=== PATIENT | male | born 1990 | race Caucasian/White ===

== ENCOUNTER 2021-11-23 10:45 | Observation (INO) | payer BC, SELFPAY ==
[2021-11-23 10:47] VITALS: BP 139/70; PULSE 106; RESP 22; TEMP 36.6; O2SAT 94; BMI 31.6
[2021-11-23 11:18] LABS: Vista UDS pH Range 7
[2021-11-23 11:18] LABS: Absolute Lymphocyte Count 1.71 X10^3/uL (0.83-4.51); Absolute Neutrophil Count 6.2 X10^3/uL (2.0-7.7); Basophil# 0.07 X10^3/uL; Basophil% 0.8 % (0-1); Eosinophil# 0.02 X10^3/uL; Eosinophils% 0.2 % (0-5); Hematocrit 51.7 % (40-54); Hemoglobin 17.8 g/dL (13.0-16.5); Lymphocyte # 1.71 X10^3/ul (0.83-4.51); Lymphocyte % 19.5 % (19-41); Mean Corp Hgb Conc 34.4 g/dL (32-36); Mean Corpuscular Hgb 29.6 pg (27.0-32.0); Mean Corpuscular Volume 85.9 fL (80-94); Mean Platelet Vol. 8.6 fl (6.2-12.0); Monocyte# 0.76 X10^3/uL; Monocyte% 8.6 % (0-10); NRBC Flagged by Analyzer 0 % (0-5); Neutrophil # 6.16 X10^3/uL (2.7-7.7); Neutrophil % 70.1 % (47-70); Platelet Count 323 K/mm3 (150-450); RBC Distribution Width SD 40.3 fl (35.1-43.9); Red Blood Count 6.02 M/mm3 (4.6-6.2); White Blood Count 8.8 K/mm3 (4.4-11.0)
--- NOTE | 2021-11-23 11:24 | EX.ED.SAOD ---
HPI History of Present Illness Chief Complaint: Substance Abuse Narrative Narrative: 31-year-old male with longstanding EtOH abuse issues presenting for detox. Patient states that it was within the last month or 2 he was at [facility] for detox. At that point he states he drank about half a gallon of whiskey a day. He states that over the last 2 weeks he has been drinking again and drinks about 1/5 of whiskey a day. Patient states he drank some beers and some white claws prior to coming today. Last drink was right before coming into the ER. Patient states that he was at [facility] last night for detox and states he was very intoxicated and waited so long that he started to go into withdrawals. He could not get seen and reports that he was told to go to [facility] for detox if he needed it. Patient states that he does not have withdrawal seizures but does get very agitated and gets the shakes very badly. He also reports that he has had some problems with nausea and epigastric burning recently reports sometimes is difficult for him to eat and drink because of the symptoms. He does have Zofran at home and this is not helping his nausea. He denies a history of pancreatitis. He states its undiagnosed. Patient further denies illicit drug use except for use of marijuana. [facility] Medical History Alcohol abuse Hx of corrected cleft lip and palate Home Medications NK 11/23/21 [History Last Taken Unknown] Allergy/AdvReac Type Severity Reaction Status Date / Time meperidine [From Demerol] Allergy Anaphylaxis Verified 11/23/21 10:47 Social History Smoking Status: Current every day smoker tobacco type: cigarettes ROS ROS ED Constitutional Constitutional ED: Denies chills or fever(s) Eyes Eyes: Denies change in vision or diplopia ENT ENT ED: Denies rhinorrhea or sore throat Cardiovascular Cardiovascular: Denies chest pain or palpitations Respiratory/Chest Respiratory/Chest: Denies cough or dyspnea Gastrointestinal Gastrointestinal: Reports nausea and vomiting; Denies abdominal pain Genitourinary Genitourinary ED: Denies dysuria Musculoskeletal Musculoskeletal: Denies arthralgias or back pain Integumentary Denies abscess or Abrasions Neurologic Neurologic: Denies headache(s) or paresthesias Psychiatric Psychiatric: Reports anxiety; Denies depression, suicidal ideation or suicidal thoughts EXAM Physical Exam Const Vital Signs: 11/23/21 10:47 Temperature 97.9 F Temperature Source Temporal Pulse Rate 106 H Respiratory Rate 22 H Blood Pressure 139/70 H Blood Pressure Mean 93 Pulse Ox 94 Oxygen Delivery Method Room Air Positive well nourished General Appearance ED: NAD; Negative for pallor HEENT Reports moist mucous membranes atraumatic Eyes PERRL and EOMs intact bilaterally Chest Wall inspection of chest normal Resp normal respiratory effort and clear to auscultation bilaterally Auscultation: Negative for rales, rhonchi or wheezes Cardio regular rhythm Rate: tachycardic GI soft to palpation and no masses Neuro oriented x3 and CN's II-XII intact bilaterally Sensorium / Orientation: alert Psych mental status grossly normal and thought process normal Skin General Skin Exam: Negative for jaundice or pallor MDM MDM MDM Narrative Medical decision making narrative: Patient presenting for EtOH detox. On my initial exam he states he was not feeling any anxiety or feelings of withdrawal but he does get the symptoms. I obtained blood work and his CBC and CMP are normal. Urine drug screen positive for cannabinoids. Lipase negative. EtOH 99. Patient did state that he started to feel little anxious and was given 1 mg of Ativan. His nausea was treated with Zofran and he was also given a dose of Protonix as well as a liter of IV fluids. Patient discussed with hospitalist for admission. Impression: 1. EtOH intoxication 2. EtOH abuse 3. EtOH withdrawal 4. Nausea/vomiting Lab Data Attestation: I reviewed the patient's lab results. Labs: Laboratory Results - last 24 hr 11/23/21 11/23/21 11/23/21 11:05 11:10 11:10 WBC 8.8 RBC 6.02 Hgb 17.8 H Hct 51.7 MCV 85.9 MCH 29.6 MCHC 34.4 RDW Std Deviation 40.3 RDW Coeff of Jennifer 13.0 Plt Count 323 MPV 8.6 Immature Gran % (Auto) 0.800 Neut % (Auto) 70.1 H Lymph % (Auto) 19.5 [place] % (Auto) 8.6 Eos % (Auto) 0.2 Baso % (Auto) 0.8 Absolute Neuts (auto) 6.2 Absolute Lymphs (auto) 1.71 Nucleated RBC % 0 Sodium 138 Potassium 3.6 Chloride 101 Carbon Dioxide 28.0 Anion Gap 9 BUN 6 L Creatinine 1.09 Estim Creat Clear Calc 93.49 Est GFR (MDRD) Af Amer 103 Est GFR (MDRD) Non-Af 85 BUN/Creatinine Ratio 5.5 L Glucose 112 H Calcium 9.2 Total Bilirubin 0.50 AST 26 ALT 42 Alkaline Phosphatase 99 Total Protein 8.0 Albumin 4.0 Globulin 4.0 Albumin/Globulin Ratio 1.0 Lipase Urine Opiates Screen NEGATIVE Urine Methadone Screen NEGATIVE Ur Barbiturates Screen NEGATIVE Ur Phencyclidine Scrn NEGATIVE Ur Amphetamines Screen NEGATIVE MDMA (Ecstasy) Screen NEGATIVE U Benzodiazepines Scrn NEGATIVE Urine Cocaine Screen NEGATIVE U Cannabinoids Screen POSITIVE H Ur Drug Screen Comment Ethyl Alcohol 11/23/21 11/23/21 11:10 11:10 WBC RBC Hgb Hct MCV MCH MCHC RDW Std Deviation RDW Coeff of Jennifer Plt Count MPV Immature Gran % (Auto) Neut % (Auto) Lymph % (Auto) [place] % (Auto) Eos % (Auto) Baso % (Auto) Absolute Neuts (auto) Absolute Lymphs (auto) Nucleated RBC % Sodium Potassium Chloride Carbon Dioxide Anion Gap BUN Creatinine Estim Creat Clear Calc Est GFR (MDRD) Af Amer Est GFR (MDRD) Non-Af BUN/Creatinine Ratio Glucose Calcium Total Bilirubin AST ALT Alkaline Phosphatase Total Protein Albumin Globulin Albumin/Globulin Ratio Lipase 110 Urine Opiates Screen Urine Methadone Screen Ur Barbiturates Screen Ur Phencyclidine Scrn Ur Amphetamines Screen MDMA (Ecstasy) Screen U Benzodiazepines Scrn Urine Cocaine Screen U Cannabinoids Screen Ur Drug Screen Comment Ethyl Alcohol 99.0 Discharge Plan Triage Chief Complaint: Substance Abuse ED Provider: Aamir Pelletier Dx/Rx/DC Orders Prescriptions: No Action NK Primary Care Provider: Mary Jane Block,Out of Referrals: Mary Jane Block,Out of [Primary Care Provider] -
[2021-11-23 11:30] LABS: Amphetamine Urine VISTA NEGATIVE (<1000 ng/mL); Barbiturate Urine VISTA NEGATIVE (< 200 ng/mL); Benzodiazepine Urine VISTA NEGATIVE (< 200 ng/mL); Cocaine Urine VISTA NEGATIVE (< 300 ng/mL); Ecstacy Urine VISTA NEGATIVE (< 500 ng/mL); Methadone Urine VISTA NEGATIVE (< 300 ng/mL); PCP Urine VISTA NEGATIVE (< 25 ng/mL); THC Urine VISTA POSITIVE (< 50 ng/mL)
[2021-11-23 11:34] LABS: AST(SGOT) 26 U/L (15-37); Alanine Aminotransfer ALT/SGPT 42 U/L (16-61); Alkaline Phosphatase 99 U/L (45-117); Anion Gap 9 (5-15); BUN 6 mg/dL (7-18); BUN/Creat Ratio 5.5 RATIO (10-20); Calcium,Total 9.2 mg/dL (8.5-10.1); Chloride 101 mmol/L (98-107); Creatinine, Serum 1.09 mg/dL (0.70-1.30); EST Glomerular Filtration Rate 85 mL/min (>60); Est Glom Filt Rate - Afr Amer 103 mL/min (>60); Estimated Creatinine Clearance 93.49 ml/min; Glucose 112 mg/dL (74-106); Potassium 3.6 mmol/L (3.5-5.1); Sodium Level 138 mmol/L (136-145)
--- NOTE | 2021-11-23 11:39 | CM.ED ---
Addendum entered by Radha Lorenz 11/23/21 14:11: SW placed a call to [facility] addiction therapist and provided referral. Original Note: Social Work Note Reason for Referral: ETOH Detox SW in to speak with pt. Pt with guest present in room. Pt gave permission for this worker to speak to him in front of his guest. Pt confirms that he is at [facility] for Detox/Stabilization Program. Pt states that the rules were reviewed with him and is agreeable. SW to call addiction therapist to inform of referral. Radha Lorenz DEPARTMENT STORE SALESPERSON, [employer]
[2021-11-23] MEDS: LORazepam 2 MG/ML Syringe 1 MG IV (12:00)
[2021-11-23] MEDS: 0.9% Normal Saline 1,000 ML 999 ML IV (12:00)
[2021-11-23] MEDS: Metoclopramide 10 MG/2 ML Vial IV (12:00)
[2021-11-23 12:16] LABS: Lipase 110 U/L (73-393)
--- NOTE | 2021-11-23 13:49 | HP.PCM.HOS_ITS ---
HPI - General General Date of Admission: 11/23/21 Date of Service: 11/23/21 Chief Complaint: Acute alcohol withdrawal HPI Narrative MACHELLE GASPAR, is a 31 M who presented to the emergency department at [facility] on 11/23/2021 requesting detox from alcohol. The patient had a recent admission within the last 2 months at [facility] and had been following up at [facility] but unfortunately started drinking again a pproximately bout 2 weeks ago. He is currently drinking 1/5 of any type of hard liquor he can find a day. His last drink was just prior to admission. Alcohol level at the time of admission was 99. He also is complaining of some nausea and abdominal pain that sounds more like dyspepsia. He was given Protonix in the emergency department. Vital signs emergency department showed a temperature of 97.9, blood pressure of 139/70, heart rate 106, respiratory rate 22, oxygen saturations were 94% on room air. His CBC and CMP are unremarkable. His tox screen is positive only for cannabis. [facility] Medical History Alcohol abuse Hx of corrected cleft lip and palate Tobacco abuse Home Medications NK 11/23/21 [History Last Taken Unknown] Allergy/AdvReac Type Severity Reaction Status Date / Time meperidine [From Demerol] Allergy Anaphylaxis Verified 11/23/21 10:47 Family History (Updated 11/23/21 @ 14:[address] Lamar Snow DO) Grandfather Alcoholism Surgical History (Updated 11/23/21 @ 14:[address] Lamar Snow DO) H/O cleft lip repair Social History (Updated 11/23/21 @ 14:[address] Lamar Snow DO) Smoking Status: Current every day smoker tobacco type: cigarettes Smoking packs per day: 2 Smoking cigarettes per day: 40.0 alcohol intake: current alcohol intake frequency: 3 or more drinks per day substance use type: marijuana ROS Constitutional Constitutional: Reports fatigue and malaise; Denies anorexia, change in weight, chills, fever(s), night sweats, weakness or other Eyes Eyes: Denies blurry vision, change in eye color, change in vision, discharge from eye(s), double vision, erythema, eye pain, loss of vision or other ENT HEENT: Denies abnormal hearing, dysphagia, ear pain, epistaxis, headache(s), hearing loss, nasal congestion, nasal discharge, post nasal drip, sinus pressure, sore throat or other Cardiovascular Cardiovascular: Denies chest pain, claudication, dyspnea on exertion, edema, lightheadedness, orthopnea, palpitations, paroxysmal nocturnal dyspnea, rapid heart rate, syncope or other Respiratory/Chest Respiratory/Chest: Denies cough, dyspnea, excessive phlegm production, hemoptysis, productive cough, shortness of breath at rest, shortness of breath with exertion, wheezing or other Gastrointestinal Gastrointestinal: Reports abdominal pain, dyspepsia and nausea; Denies coffee ground emesis, constipation, diarrhea, hematemesis, hematochezia, loose stools, melena, vomiting or other Genitourinary Genitourinary: Denies burning urination, difficulty urinating, dysuria, hematuria, nocturia, urinary frequency, urinary hesitancy, urinary incontinence, urinary urgency or other Musculoskeletal Musculoskeletal: Denies arthralgias, back pain, joint pain, joint stiffness, joint swelling, myalgias, neck pain or other Neurologic Neurologic: Denies abnormal gait, abnormal speech, confusion, disequilibrium, dizziness, focal weakness, headache(s), numbness, paresthesias, seizure-like activity, seizures, syncope, tingling, tremor(s) or other Psychiatric Psychiatric: Denies anxiety, depression, homicidal ideation, suicidal ideation or other Endocrine Endocrinology: Denies change in body appearance, cold intolerance, excessive sweating, heat intolerance, polydipsia, polyuria or other Hematologic/Lymphatic Hematologic/Lymphatic: Denies anemia, easy bleeding, easy bruising, lymphadenopathy or other Allergic/Immunologic Allergic/Immunologic: Denies rhinitis, hives, eczemia, asthma or other Vital Signs Vital Signs Vital Signs: 11/23/21 10:47 Temperature 97.9 F Temperature Source Temporal Pulse Rate 106 H Respiratory Rate 22 H Blood Pressure 139/70 H Blood Pressure Mean 93 Pulse Ox 94 Oxygen Delivery Method Room Air Weight Weight: 91.444 kg Body Mass Index (BMI) 31.6 Physical Exam Const alert and oriented x3 Constitutional Narrative: Obese, young white male who appears much older than stated age, lying in bed in the emergency department right side-lying, appears uncomfortable but nontoxic General Appearance: cooperative HEENT normocephalic, head/scalp atraumatic, hearing grossly normal bilaterally and moist oral mucous membranes HEENT Narrative: Obvious history of a cleft lip on the left side, Mallampati 3, no thrush, dentition poor Resp normal respiratory effort, no retractions, no use of accessory muscles and clear to auscultation bilaterally Resp Narrative: Diffusely diminished but clear Auscultation: Negative for crackles, rales, rhonchi or wheezes Cardio regular rhythm, S1 normal heart sound, S2 normal heart sound, no murmurs, no rub, no gallops, no clicks and no JVD Cardio Narrative: Tachycardic-mild GI normal to inspection, nondistended, normoactive bowel sounds, soft to palpation and non-distended Extremity no clubbing, cyanosis or edema Extremity Narrative: 2+ pedal pulses Neuro oriented x3, moves all extremities and no focal motor deficits Speech: speech normal Psych Psych Narrative: Affect is flattened mood seems depressed Results Lab / Micro Data Attestation: I reviewed the patient's lab results. Result Diagrams: 11/23/21 11:10 11/23/21 11:10 Labs: Laboratory Results - last 24 hr 11/23/21 11:05: Urine Opiates Screen NEGATIVE, Urine Methadone Screen NEGATIVE, Ur Barbiturates Screen NEGATIVE, Ur Phencyclidine Scrn NEGATIVE, Ur Amphetamines Screen NEGATIVE, MDMA (Ecstasy) Screen NEGATIVE, U Benzodiazepines Scrn NEGATIVE, Urine Cocaine Screen NEGATIVE, U Cannabinoids Screen POSITIVE H, Ur Drug Screen Comment 11/23/21 11:10: WBC 8.8, RBC 6.02, Hgb 17.8 H, Hct 51.7, MCV 85.9, MCH 29.6, MCHC 34.4, RDW Std Deviation 40.3, RDW Coeff of Jennifer 13.0, Plt Count 323, MPV 8.6, Immature Gran % (Auto) 0.800, Neut % (Auto) 70.1 H, Lymph % (Auto) 19.5, Clare % (Auto) 8.6, Eos % (Auto) 0.2, Baso % (Auto) 0.8, Absolute Neuts (auto) 6.2, Absolute Lymphs (auto) 1.71, Nucleated RBC % 0 11/23/21 11:10: Sodium 138, Potassium 3.6, Chloride 101, Carbon Dioxide 28.0, Anion Gap 9, BUN 6 L, Creatinine 1.09, Estim Creat Clear Calc 93.49, Est GFR (MDRD) Af Amer 103, Est GFR (MDRD) Non-Af 85, BUN/Creatinine Ratio 5.5 L, Gluc ose 112 H, Calcium 9.2, Total Bilirubin 0.50, AST 26, ALT 42, Alkaline Phosphatase 99, Total Protein 8.0, Albumin 4.0, Globulin 4.0, Albumin/Globulin Ratio 1.0 11/23/21 11:10: Ethyl Alcohol 99.0 11/23/21 11:10: Lipase 110 Assessment & Plan Assessment/Plan (1) Alcohol withdrawal: (2) Gastritis: (3) Marijuana use: PLAN: Plan Alcohol withdrawal -Underwent detox at [facility] within the last 1 to 2 months -Had been following up at [facility] IOP -Started drinking about 2 weeks ago -Currently drinking about fifth of any liquor he can find -Last drink was just prior to coming in -Alcohol level on admission was 99 -Start phenobarbital taper -Thiamine/folate -Supportive medications -180 consultation Suspected gastritis -Patient reports symptoms consistent with gastritis -Start Protonix 40 mg p.o. daily -Start Carafate 1 mg 4 times daily -Monitor for symptoms THC use -Recommend cessation Tobacco abuse -Recommend cessation -Nicotine patch available DVT prophylaxis -Low risk -Ambulation CODE STATUS -Full code Charges/Coding Visit Charges Inpatient E&M: 82430 Init Hosp L2
[2021-11-23 14:29] VITALS: BMI 28.8
[2021-11-23 14:30] VITALS: BP 125/79; PULSE 98; RESP 16; TEMP 36.9; O2SAT 95
[2021-11-23] MEDS: Phenobarbital 32.4 MG Tablet 97.2 MG PO ×3 (15:39→22:35)
[2021-11-23] MEDS: Sucralfate 1 GM Tablet PO ×2 (15:39→22:10)
[2021-11-23] MEDS: Dicyclomine 10 MG Capsule 20 MG PO (15:39)
[2021-11-23] MEDS: Gabapentin 300 MG Capsule PO (15:39)
--- NOTE | 2021-11-23 15:41 | ADDICTION ---
This tech writer met with PT to conduct ASAM, MSE, AUDIT assessments and to plan for d/c. PT A+Ox4 and participated actively. All assessments completed, and placed in PT's chart. PT plans to f/u with individual counselor at [facility] in [place] for follow-up outpatient counseling services. PT did not indicate a need for transportation post d/c from [facility].
[2021-11-23] MEDS: LORazepam 2 MG/ML Syringe IV ×3 (16:44→20:27)
[2021-11-23] MEDS: 0.9% Saline Lock 10 ML Syringe IV ×2 (16:45→20:27)
[2021-11-23 20:30] VITALS: BP 148/101; PULSE 115; RESP 18; TEMP 36.8; O2SAT 95
[2021-11-23] MEDS: traZODone 100 MG Tablet PO (22:35)
[2021-11-23] MEDS: hydrOXYzine PAM 25 MG Capsule 50 MG PO (22:35)
[2021-11-23] MEDS: LORazepam 1 MG Tablet 2 MG PO (22:35)
--- NOTE | 2021-11-24 02:54 | NURSING ---
This nurse earlier in the night thought she smelled snuff on patient's breath, when she went in to give 3 am meds, tote ties was broken and his phone was out of the tote laying on his chest. PRNs given at bedtime and he was snoring hard and didn't rouse to take phenobarb, vitals assessed and wnl. Charge notified about his tote. Meds wasted in accudose.
[2021-11-24 07:59] VITALS: O2SAT 95
--- NOTE | 2021-11-24 11:20 | PCM.HOSP.N ---
Hospitalist Note Overnight patient broke into his locked up belongings and took his phone out he was also noted to be extremely somnolent afterwards. We did confront him based on the ramp program agreement that he signed prior to admission and he refused to give his phone and stated that he was just going to go if he could not have it for 3 days. We educated him on the reasoning and he was resistant to accepting this education. We did advise him that if he would like to read go through detox we are happy to take care of him and just 3 presents emergency department. He left AGAINST MEDICAL ADVICE on 11/24/2021
--- NOTE | 2021-11-24 12:23 | NURSING ---
late entry: at 830a was called in to pts room. Dr. Snow in room talking with pt about how pt broke open RAMP boxes to get his phone. Dr. Snow asked pt for his phone per the signed contract with the RAMP program he is not allowed to have his phone. pt would not give up his phone. pt was made aware that per the contract that if he does not follow the rules can be asked to leave program. This nurse talked with pt and reminded pt on admission the day prior that this RN had talked about why he couldn't have his phone or personal belongings - at that time the pt was agreeable with that. But sometime during the night the pt wanted his phone so he broke open the RAMP boxes and retrieved his phone. this RN asked for his phone and if he wouldn't give it up then he can sign AMA papers to leave the program. pt states you don't expect me to be here for 3 days without having my phone i went through the rules and why no phone pt states that is stupid and at least in [facility] you get a phone call states that i have a at home i informed him that she can call in and check on him with the nursing staff on how he is doing but that she would not be able to talk to them. he states that wont work for me. this RN stated that i would like for him to stay and get the help he needed but he has to give up his phone. since pt would not do this then the may leave the hospital. pt states he is going to leave. this RN undid the RAMP boxes so pt could get dressed. pt signed the AMA papers. By this time security was up on the floor to escort pt out. rechecked pt 10 mins later and pt was not dressed. Informed pt that AMA papers are signed and that he needs to get dressed and leave. states when i'm ready informed pt that he needs to get up and get dressed or we will have to call [employer]. pt was upset states i hate the trial examiner they are a bunch of pigs pt got up and dressed walked around the room for another 5mins or so then Security escorted pt out the Hospital. did inform pt that when he was ready to get cleaned that he can always come back to the ER, but just remember that you will not have access to any personal belonging.
== END 2021-11-24 08:52 | disposition left against medical advice (07) | DRG 894 ==
LOC: ED 11:12 → MS3 02-04 10:01
PROVIDERS: Admitting Provider Internal Medicine; Emergency Provider Student in an Organized Health Care Education/Training Program; Visit Provider Internal Medicine
DX: F10.229 Alcohol dependence with intoxication, unspecified (principal); F10.239 Alcohol dependence with withdrawal, unspecified; F12.99 Cannabis use, unspecified with unspecified cannabis-induced disorder; F17.210 Nicotine dependence, cigarettes, uncomplicated; K29.70 Gastritis, unspecified, without bleeding; Y90.4 Blood alcohol level of 80-99 mg/100 ml; Z53.29 Procedure and treatment not carried out because of patient's decision for other reasons
CPT/HCPCS: 80053; 80307; 82077; 83690; 85025; 96365; 96366; 96375; 96376; 97802; 99218; 99406; J7030; A4216; G0378

== ENCOUNTER 2021-11-26 15:55 | Inpatient (IN) | payer BC, SELFPAY ==
[2021-11-26 15:57] VITALS: BP 146/92; PULSE 115; RESP 14; TEMP 36.4; O2SAT 96; BMI 29.9
--- NOTE | 2021-11-26 17:16 | EDS_ITS ---
HPI History of Present Illness Chief Complaint: Substance Abuse Detail of Chief Complaint: Alcoholism requesting detox Informant: patient, spouse/S.O. and family Onset/Context/Timing Onset: - (Patient has been drinking since age of 14.) Context: Sudden Onset Timing: Continuous Quality: Patient admits to drinking a case of white claw a day Location: Not applicable Current Severity: Severe Maximum Severity: Severe Worsened by: Nothing Relieved by: Nothing Associated Symptoms Associated Symptoms: Positive for palpatations and change in mental status; Negative for vomiting*, diarrhea*, fever*, rash*, seizure, tremor, trauma, sex for drugs*, no, suicidal ideation, homicidal ideation or *HIV Risk Factors:Consider testing if last test > 6 months Prehospital Treatment: Naloxone, Glucose, Oxygen, BVM and CPR Narrative Narrative: Patient is a 31-year-old gentleman who was brought to the emergency department by friend and spouse. He has 2 children and his is presently . He works for [employer]. He admits to smoking cigarettes, marijuana and e- cigarettes. He states he tried heroin once. He admits to drinking 12 pack of white claw a day. Patient states he left from the ER on the because I was an asshole . Patient states he needs help. Patient apparently does not like his present job. He denies headache. He denies ocular, visual auditory symptoms. Nuys ringing his ears decreased hearing. He denies cardiac respiratory symptoms. He denies abdominal pain. Denies black or maroon-colored stool. He denies bruising easily. Prior similar symptoms: Yes Recent Illness/Hospitalization: No PFSH PFSH Medical History Alcohol abuse Hx of corrected cleft lip and palate Tobacco abuse Home Medications NK 11/23/21 [History Last Taken Unknown] Allergy/AdvReac Type Severity Reaction Status Date / Time meperidine [From Demerol] Allergy Anaphylaxis Verified 11/26/21 15:59 Family History Grandfather Alcoholism Surgical History H/O cleft lip repair Social History (Updated 11/26/21 @ 17:[address] Avinash Lopes MD) household members: spouse and children Smoking Status: Current every day smoker tobacco type: cigarettes alcohol intake: current alcohol intake frequency: 3 or more drinks per day substance use type: marijuana ROS ROS ED Constitutional Constitutional ED: Reports sweats; Denies chills, fever(s), subjective or weight loss Eyes Eyes: Denies blurry vision, change in vision or diplopia ENT ENT ED: Denies ear pain, rhinorrhea or sore throat Cardiovascular Cardiovascular: Reports palpitations; Denies chest pain or racing heartbeat Respiratory/Chest Respiratory/Chest: Denies cough, dyspnea or dyspnea on exertion Gastrointestinal Gastrointestinal: Denies abdominal pain, diarrhea, melena, nausea or vomiting Genitourinary Genitourinary ED: Denies dysuria or urinary frequency Musculoskeletal Musculoskeletal: Denies arthralgias, back pain, myalgias or neck pain Integumentary Denies Abrasions or rash Neurologic Neurologic: Denies headache(s) Psychiatric Psychiatric: Reports anxiety and depression; Denies suicidal ideation Endocrine Endocrinology: Denies cold intolerance or heat intolerance Hematologic/Lymphatic Hematologic/Lymphatic: Denies easy bleeding or easy bruising EXAM Physical Exam Const Vital Signs: 11/26/21 15:57 Temperature 97.6 F L Temperature Source Temporal Pulse Rate 115 H Respiratory Rate 14 Blood Pressure 146/92 H Blood Pressure Mean 110 Pulse Ox 96 Oxygen Delivery Method Room Air Positive well nourished and well developed Constitutional Narrative: Clinically patient is inebriated. His face is flushed. His sclera is injected. He does have a small subconjunctival hemorrhage noted temporal side right eye. General Appearance ED: well developed; Negative for pallor HEENT Reports TM's clear and moist mucous membranes HEENT Narrative: Poor dentition. trauma; Negative for tenderness Tympanic Membrane ED: Yes TM's clear Eyes PERRL and EOMs intact bilaterally Eyes Narrative: Subconjunctival hemorrhage right General Eye ED: Negative for pale conjunctiva or scleral icterus Neck no lymphadenopathy, supple and no JVD Lymph Lymphatic: no lymphadenopathy noted Resp normal respiratory effort and clear to auscultation bilaterally Cardio regular rhythm, S1 normal heart sound, S2 normal heart sound and no murmurs Rate: tachycardic GI soft to palpation, non-tender, non-distended and no masses Auscultation: hypoactive bowel sounds Back/Spine no CVA tenderness Neuro oriented x3, CN's II-XII intact bilaterally and no sensory deficits noted Neuro Narrative: There is no nystagmus. [place] Coma Scale: document GCS findings Spontaneous Obeys Commands Oriented 15 Sensorium / Orientation: alert Speech: speech normal Motor Exam: strength 5/5 throughout Psych Psych Narrative: Clinically patient is inebriated. Patient's psychomotor skills are slow. He understands he is not permitted to smoke during his treatment. Skin General Skin Exam: Negative for jaundice or pallor Lesions: no lesions Rashes: no rashes MDM MDM MDM Narrative Medical decision making narrative: Patient alcoholic requesting detox who clinically is inebriated. Hospitalist was paged for admission. Lab Data Lab results narrative: Return results from ER visit on 826 were reviewed. Laboratory results to be followed by the admitting physician. Discharge Plan Dx/Rx/DC Orders Clinical Impression: Alcoholism with alcohol dependence, Sinus tachycardia, Tobacco use Disposition Disposition: Acute Care Hospital [facility]
--- NOTE | 2021-11-26 17:34 | NURSING ---
MED SURG RAVINDER ALCOHOLISM WITH DEPENDENCY, SINUS TACHYCARDIA
--- NOTE | 2021-11-26 17:38 | HP.PCM.HOS_ITS ---
[facility] - General General Date of Admission: 11/26/21 Date of Service: 11/26/21 Chief Complaint: Acute alcohol withdrawal syndrome. Last drink 45 minutes prior to arrival. HPI Narrative MACHELLE GASPAR, is a 31 M with history of chronic alcohol use and cigarette smoking since age of 12 came to ED for getting medical help for acute alcohol withdrawal syndrome. Patient is having generalized shaking, anxiety, restlessness and nausea. He denies hallucination, delusion or illusion or suicidal ideation or attempt. Patient was admitted here on 11/23 and he signed AMA on 11/24. It seems after signing AMA, patient was also chased by patrol police sergeant for 3 [address] from the gas station. After that police caught him and took him to the [email or web address] from where patient and family said he was released after 6 hours. Probably might have signed AMA from there too. As per patient family members, please be team up and he complains of soreness over lower extremities calf and thigh muscles. Mild bruise on both legs. Patient drinks half a gallon of vodka every day and also 12 packs of Biclora every day. He smokes 3 packs of cigarettes daily. He also smokes half a gram of marijuana and e-cigarettes. Prior to that he was using steroid and he has acne over chest and back but quit taking his steroid 4 months ago. His said he went into the wrong company in gym and started using a steroid. In in ED, patient is tachycardic, blood pressure elevated 148/101. No fever. Patient is further admitted. COUNTS INCLUDE 234 BEDS AT THE [facility] Medical History Alcohol abuse Hx of corrected cleft lip and palate Tobacco abuse Home Medications NK 11/23/21 [History Last Taken Unknown] Allergy/AdvReac Type Severity Reaction Status Date / Time meperidine [From Demerol] Allergy Anaphylaxis Verified 11/26/21 15:59 Family History Grandfather Alcoholism Surgical History H/O cleft lip repair Social History household members: spouse and children Smoking Status: Current every day smoker tobacco type: cigarettes alcohol intake: current alcohol intake frequency: 3 or more drinks per day substance use type: marijuana ROS ROS Narrative Constitutional: Reports fatigue and weakness. No fever HEENT: Reports systems reviewed and no addt'l complaints, except as documented Respiratory/Chest: Denies chest pain, shortness of breath at rest or with exertion Gastrointestinal: Denies current coffee ground emesis, hematemesis or vomiting. History of hematemesis about 6 months ago. Genitourinary: Denies burning urination or new urinary tract symptoms Musculoskeletal: Muscle aches and pain in lower extremity as described in HPI. No bony arthritis Neurologic: Denies seizure-like activity skin: No ulcer. No rash Endocrinology: Reports systems reviewed and no addt'l complaints, except as documented Hematologic/Lymphatic: Reports systems reviewed and no addt'l complaints, except as documented Rest 14 ROS are negative except as mentioned in HPI Vital Signs Vital Signs Vital Signs: 11/26/21 15:57 Temperature 97.6 F L Temperature Source Temporal Pulse Rate 115 H Respiratory Rate 14 Blood Pressure 146/92 H Blood Pressure Mean 110 Pulse Ox 96 Oxygen Delivery Method Room Air Weight Weight: 191 lb Body Mass Index (BMI) 29.9 Physical Exam Narrative General: Alert, Oriented x3, Cooperative HEENT: Atraumatic, PERRLA, EOMI, Normocephalic Oral: No Gingival or Mucosal Lesions/ Ulcerations Neck: Supple, No JVD, Negative Carotid Bruits Lungs: Air entry diminished in bilateral lung bases. No crepitation/rhonchi Cardiovascular: Sinus tachycardia, Normal S1, Normal S2, No murmurs Abdomen: Bowel Sounds Present, Soft, Non Tender, Non-Distended : No renal angle tenderness. No suprapubic tenderness. Extremities: No edema, Capillary Refill Less than 3 Seconds Skin: Mild bruise on both legs. Musculoskeletal: Muscle tenderness present over thigh and calf in both lower extremities. ROM intact. Neurological: Cranial nerves II-XII grossly intact, DTR 2+/4. Psych/Mental Status: Anxious, restless. No hallucination. Results Lab / Micro Data Result Diagrams: 11/26/21 17:40 Assessment & Plan Assessment/Plan (1) Alcohol withdrawal delirium, acute, hyperactive: PLAN: Plan This 22-year-old question gentleman came to ED for medical stabilization of acute alcohol withdrawal syndrome. 1. Acute alcohol withdrawal syndrome with history of chronic alcohol use and dependence and tolerance: Patient is being admitted on MedSur floor. Patient has tachycardia and elevated BP. on medical stabilization protocol for acute alcohol withdrawal syndrome. CIWA score monitoring. On phenobarbital protocol and another adjunctive medications as needed for symptom control. IV fluid Ringer lactate ordered. On thiamine and folic acid. 2. Mild hypokalemia: Potassium 3.4. Potassium replacement ordered. Serum magnesium and phosphorus ordered. 3. Acute mild alcoholic hepatitis possible alcoholic gastritis: AST 105, ALT normal. Previous AST and ALT normal on 11/23. Patient does not have RUQ tenderness. History of hematemesis 6 months ago. Right upper quadrant sonogram ordered. Lipase was 100 999/. On Protonix 40 mg daily. No NSAID or steroid. 4. Chronic active smoking cigarettes, marijuana and e-cigarettes: Patient smokes 3 packs/day. Nicotine patch ordered. Disguising smoking cessation. 5. Chronic acne on chest and back, scabbed and healed probably due to steroid abuse admission HPI: Follow-up PCP. Not need acute management in the hospital. VTE prophylaxis, low risk. Activity ambulation encouraged CODE STATUS discussed briefly with the patient's near the bedside. Wants full code. No advanced directive or living will. Laboratory Results 11/26/21 17:40: Sodium 142, Potassium 3.4 L, Chloride 106, Carbon Dioxide 30.0, Anion Gap 6, BUN 6 L, Creatinine 1.01, Estim Creat Clear Calc 100.90, Est GFR (MDRD) Af Amer 112, Est GFR (MDRD) Non-Af 93, BUN/Creatinine Ratio 5.9 L, Glucose 96, Calcium 8.9, Total Bilirubin 0.40, AST 105 H, ALT 53, Alkaline Phosphatase 96, Total Protein 7.0, Albumin 3.6, Globulin 3.4, Albumin/Globulin Ratio 1.1 11/26/21 17:40: Ethyl Alcohol 150.0 11/26/21 17:58: Urine Opiates Screen NEGATIVE, Urine Methadone Screen NEGATIVE, Ur Barbiturates Screen POSITIVE H, Ur Phencyclidine Scrn NEGATIVE, Ur Amphetamines Screen NEGATIVE, MDMA (Ecstasy) Screen NEGATIVE, U Benzodiazepines Scrn NEGATIVE, Urine Cocaine Screen NEGATIVE, U Cannabinoids Screen POSITIVE H, Ur Drug Screen Comment Charges/Coding Visit Charges Inpatient E&M: 20159 Init Hosp L3
[2021-11-26 18:11] VITALS: BP 138/87; PULSE 110; RESP 17; TEMP 36.7; O2SAT 95
[2021-11-26 18:12] LABS: ALB/GLOB Ratio 1.1 RATIO (0.9-2.4); AST(SGOT) 105 U/L (15-37); Alanine Aminotransfer ALT/SGPT 53 U/L (16-61); Albumin, Serum 3.6 g/dL (3.2-5.0); Alkaline Phosphatase 96 U/L (45-117); Anion Gap 6 (5-15); BUN 6 mg/dL (7-18); BUN/Creat Ratio 5.9 RATIO (10-20); Calcium,Total 8.9 mg/dL (8.5-10.1); Chloride 106 mmol/L (98-107); Creatinine, Serum 1.01 mg/dL (0.70-1.30); EST Glomerular Filtration Rate 93 mL/min (>60); Est Glom Filt Rate - Afr Amer 112 mL/min (>60); Globulin 3.4 g/dL (2.2-4.2); Glucose 96 mg/dL (74-106); Potassium 3.4 mmol/L (3.5-5.1); Sodium Level 142 mmol/L (136-145)
[2021-11-26 18:36] LABS: Amphetamine Urine VISTA NEGATIVE (<1000 ng/mL); Barbiturate Urine VISTA POSITIVE (< 200 ng/mL); Benzodiazepine Urine VISTA NEGATIVE (< 200 ng/mL); Cocaine Urine VISTA NEGATIVE (< 300 ng/mL); Ecstacy Urine VISTA NEGATIVE (< 500 ng/mL); Methadone Urine VISTA NEGATIVE (< 300 ng/mL); PCP Urine VISTA NEGATIVE (< 25 ng/mL); THC Urine VISTA POSITIVE (< 50 ng/mL); Vista UDS pH Range 8
--- NOTE | 2021-11-26 18:58 | CM.ED ---
SW Note SW called treatment navigator, Jerman, and updated her regarding patient's admission to [facility]. Monica MARKHAM
[2021-11-26 19:14] VITALS: BP 142/88; PULSE 95; RESP 20; TEMP 36.7; O2SAT 98
[2021-11-26 19:56] VITALS: BMI 30.9
[2021-11-26] MEDS: Phenobarbital 32.4 MG Tablet 97.2 MG PO ×2 (20:03→23:04)
[2021-11-26] MEDS: Potassium Chloride Oral Tablet 20 MEQ 40 MEQ PO ×2 (20:03→23:05)
[2021-11-26] MEDS: Lactated Ringers 1,000 ML 125 ML IV (20:21)
[2021-11-26] MEDS: Ondansetron 8 MG Tablet PO (20:21)
[2021-11-26 20:40] LABS: Magnesium 1.8 mg/dL (1.6-2.6); Phosphorus 3.1 mg/dL (2.5-4.9)
[2021-11-26] MEDS: Nicotine Polacrilex 2 MG GUM PO (21:26)
--- NOTE | 2021-11-26 21:43 | NURSING ---
pt refusing IV access at this time.
[2021-11-26 23:06] VITALS: BP 161/101; PULSE 100; RESP 18; TEMP 37; O2SAT 98
[2021-11-26] MEDS: Dicyclomine 10 MG Capsule 20 MG PO (23:12)
[2021-11-26] MEDS: Acetaminophen 500 MG Tablet PO (23:12)
[2021-11-27 03:00] VITALS: BP 119/70; PULSE 76; RESP 16; TEMP 36.7; O2SAT 99
[2021-11-27] MEDS: Phenobarbital 32.4 MG Tablet 97.2 MG PO ×2 (03:16→08:01)
[2021-11-27] MEDS: Folic Acid 1 MG Tablet PO (07:58)
[2021-11-27] MEDS: Thiamine Hydrochloride 100 MG Tablet PO (07:58)
[2021-11-27 08:00] VITALS: BP 138/96; PULSE 73; RESP 12; TEMP 36.6; O2SAT 98
[2021-11-27 08:25] LABS: Vitamin B12 457 pg/mL (211-911)
[2021-11-27 09:33] LABS: Absolute Lymphocyte Count 1.82 X10^3/uL (0.83-4.51); Absolute Neutrophil Count 5.2 X10^3/uL (2.0-7.7); Basophil# 0.04 X10^3/uL; Basophil% 0.5 % (0-1); Eosinophil# 0.08 X10^3/uL; Hematocrit 47.8 % (40-54); Hemoglobin 16.2 g/dL (13.0-16.5); Lymphocyte # 1.82 X10^3/ul (0.83-4.51); Lymphocyte % 22.7 % (19-41); Mean Corp Hgb Conc 33.9 g/dL (32-36); Mean Corpuscular Hgb 29.7 pg (27.0-32.0); Mean Corpuscular Volume 87.5 fL (80-94); Mean Platelet Vol. 9.3 fl (6.2-12.0); Monocyte# 0.85 X10^3/uL; Monocyte% 10.6 % (0-10); NRBC Flagged by Analyzer 0 % (0-5); Neutrophil # 5.16 X10^3/uL (2.7-7.7); Neutrophil % 64.3 % (47-70); Platelet Count 241 K/mm3 (150-450); RBC Distribution Width CV 12.9 % (11.6-14.6); RBC Distribution Width SD 41.1 fl (35.1-43.9); Red Blood Count 5.46 M/mm3 (4.6-6.2)
[2021-11-27 09:50] LABS: ALB/GLOB Ratio 1.1 RATIO (0.9-2.4); AST(SGOT) 102 U/L (15-37); Alanine Aminotransfer ALT/SGPT 52 U/L (16-61); Albumin, Serum 3.5 g/dL (3.2-5.0); Alkaline Phosphatase 87 U/L (45-117); Anion Gap 6 (5-15); BUN 6 mg/dL (7-18); BUN/Creat Ratio 4.6 RATIO (10-20); Calcium,Total 8.8 mg/dL (8.5-10.1); Chloride 104 mmol/L (98-107); Creatinine, Serum 1.31 mg/dL (0.70-1.30); EST Glomerular Filtration Rate 69 mL/min (>60); Est Glom Filt Rate - Afr Amer 83 mL/min (>60); Estimated Creatinine Clearance 77.79 ml/min; Globulin 3.2 g/dL (2.2-4.2); Glucose 100 mg/dL (74-106); Potassium 4.1 mmol/L (3.5-5.1); Protein, Total 6.7 g/dL (6.4-8.2); Sodium Level 139 mmol/L (136-145)
--- NOTE | 2021-11-27 10:01 | NURSING ---
PT LEAVING AMA. GERARD Luong RN HAD PT SIGN AMA PAPERWORK AND MESSAGED DR BAILEY
--- NOTE | 2021-11-27 10:03 | NURSING ---
PT LEFT AT 1003.
--- NOTE | 2021-11-27 10:06 | ADDICTION ---
Patient left AMA for the second time in less than two weeks. He will not be allowed to admit to the [facility] program for [address] Gonzales.
== END 2021-11-27 10:03 | disposition left against medical advice (07) | DRG 894 ==
LOC: ED 17:23 → MS3 17:45
PROVIDERS: Admitting Provider Internal Medicine; Emergency Provider Emergency Medicine; Visit Provider Internal Medicine
DX: F10.231 Alcohol dependence with withdrawal delirium (principal); E87.6 Hypokalemia; K70.10 Alcoholic hepatitis without ascites; F17.210 Nicotine dependence, cigarettes, uncomplicated; L70.9 Acne, unspecified; K29.20 Alcoholic gastritis without bleeding; Y90.6 Blood alcohol level of 120-199 mg/100 ml
CPT/HCPCS: 36415; 80053; 80307; 82077; 82607; 82746; 83735; 84100; 85025; 99283; J7120

== ENCOUNTER 2022-07-14 12:15 | Inpatient (IN) | payer BC, SELFPAY ==
[2022-07-14 12:16] VITALS: BP 152/107; PULSE 116; RESP 18; TEMP 36.1; O2SAT 97
--- NOTE | 2022-07-14 12:46 | EDS_ITS ---
HPI History of Present Illness Chief Complaint: Substance Abuse Informant: patient Onset/Context/Timing Onset: Today Context: Gradual Onset Timing: Continuous Worsened by: Nothing Relieved by: Nothing Associated Symptoms Associated Symptoms: Positive for vomiting* and palpatations; Negative for diarrhea*, fever*, rash*, seizure, tremor, change in mental status, suicidal ideation or homicidal ideation Narrative Narrative: Presents requesting detox from alcohol and benzodiazepines. Patient states he drinks half a gallon of vodka daily. Patient states his last drink was approximate 11:30 AM today (approximately 1 hour prior to arrival). Patient states that his last use of benzodiazepines was yesterday. Patient states he uses what ever benzodiazepines he can get. Patient states his last detox was last October. Patient states he has been drinking daily for the last couple months. Patient admits to some nausea and vomiting. Patient admits to some palpitations. Patient denies any suicidal homicidal ideations. Patient denies any seizures or tremors. Prior similar symptoms: Yes PFSH PFSH Medical History Alcohol abuse Hx of corrected cleft lip and palate Tobacco abuse Home Medications NK 11/23/21 [History Last Taken Unknown] Allergy/AdvReac Type Severity Reaction Status Date / Time meperidine [From Demerol] Allergy Anaphylaxis Verified 07/14/22 12:18 Family History Grandfather Alcoholism Surgical History H/O cleft lip repair Social History household members: spouse and children Smoking Status: Current every day smoker tobacco type: cigarettes alcohol intake: current alcohol intake frequency: 3 or more drinks per day substance use type: marijuana ROS ROS ED Constitutional Constitutional ED: Denies chills or fever(s) Eyes Eyes: Reports blurry vision; Denies change in vision ENT ENT ED: Denies rhinorrhea or sore throat Cardiovascular Cardiovascular: Reports palpitations; Denies chest pain Respiratory/Chest Respiratory/Chest: Denies cough or dyspnea Gastrointestinal Gastrointestinal: Reports nausea and vomiting Genitourinary Genitourinary ED: Denies dysuria or hematuria Musculoskeletal Musculoskeletal: Denies back pain or neck pain Integumentary Denies abscess or rash Neurologic Neurologic: Denies headache(s) or weakness Allergic/Immunologic Allergic/Immunologic ED: Denies mouth swelling or urticaria EXAM Physical Exam Const Vital Signs: 07/14/22 12:16 Temperature 97 F L Temperature Source Temporal Pulse Rate 116 H Respiratory Rate 18 Blood Pressure 152/107 H Blood Pressure Mean 122 Pulse Ox 97 Oxygen Delivery Method Room Air Positive well nourished and well developed General Appearance ED: well developed HEENT Reports moist mucous membranes Neck supple and no JVD Resp normal respiratory effort and clear to auscultation bilaterally Cardio regular rhythm and no murmurs Rate: tachycardic GI normal to inspection, nondistended, normoactive bowel sounds and non-tender Palpation: soft Extremity normal to inspection General Extremety ED: Negative for edema or tenderness General Extremity: Negative for edema Neuro oriented x3, CN's II-XII intact bilaterally and no sensory deficits noted Sensorium / Orientation: alert Motor Exam: strength 5/5 throughout Psych mental status grossly normal Skin no rashes or lesions noted MDM MDM MDM Narrative Medical decision making narrative: Differential diagnosis includes alcohol withdrawal and benzodiazepine withdrawal. Basic labs will be obtained for medical screening. CBC will be obtained to assess for leukocytosis and anemia. Comprehensive metabolic profile will be obtained to assess for hepatic function, renal function, and electrolyte abnormality. Lipase will be obtained to assess for alcoholic pancreatitis. Urine drug screen will be obtained to assess for substance abuse. Serum alcohol level will be obtained to assess for alcohol intoxication. Treatment and Re-Evaluation Narrative: Case was discussed with the hospitalist. He will admit the patient for detox from alcohol and benzodiazepines. Patient understands and is agreeable with the plan. All questions were answered. Discharge Plan Triage Chief Complaint: Substance Abuse ED Provider: Moises Bernal Dx/Rx/DC Orders Clinical Impression: Alcohol withdrawal, Benzodiazepine withdrawal Prescriptions: No Action NK Primary Care Provider: Care Physician,No Primary Referrals: Care Physician,No Primary [Primary Care Provider] - Disposition Disposition: Acute Care Hospital [facility]
[2022-07-14 13:22] LABS: Absolute Lymphocyte Count 1.95 X10^3/uL (0.83-4.51); Absolute Neutrophil Count 3.8 X10^3/uL (2.0-7.7); Basophil# 0.05 X10^3/uL; Basophil% 0.7 % (0-1); Eosinophil# 0.03 X10^3/uL; Eosinophils% 0.4 % (0-5); Hematocrit 53.4 % (40-54); Lymphocyte # 1.95 X10^3/ul (0.83-4.51); Lymphocyte % 28.9 % (19-41); Mean Corp Hgb Conc 33.9 g/dL (32-36); Mean Corpuscular Hgb 30.1 pg (27.0-32.0); Mean Corpuscular Volume 88.9 fL (80-94); Mean Platelet Vol. 8.9 fl (6.2-12.0); Monocyte# 0.84 X10^3/uL; Monocyte% 12.4 % (0-10); NRBC Flagged by Analyzer 0 % (0-5); Neutrophil # 3.82 X10^3/uL (2.7-7.7); Neutrophil % 56.7 % (47-70); Platelet Count 299 K/mm3 (150-450); RBC Distribution Width CV 12.4 % (11.6-14.6); RBC Distribution Width SD 40.4 fl (35.1-43.9); Red Blood Count 6.01 M/mm3 (4.6-6.2); White Blood Count 6.8 K/mm3 (4.4-11.0)
--- NOTE | 2022-07-14 13:26 | PCM.HP.STD ---
HPI - General General Date of Admission: 07/14/22 HPI Narrative MACHELLE GASPAR, is a 31 M who presents requesting alcohol detox. Hiren went through detox was in October 2021 and he states that he will do well for a period of time and then something will happen that causes him to start drinking again. His last drink was at around 11:30 AM today. He states that he is done multiple other drugs he is done heroin a handful of times as well as meth and he smokes marijuana periodically. On occasion he will take a benzo. [facility] Medical History Alcohol abuse Hx of corrected cleft lip and palate Tobacco abuse Home Medications divalproex 250 mg tablet,delayed release 250 mg PO TID BIPOLAR 07/14/22 [History Last Taken Unknown] doxycycline hyclate 100 mg tablet 100 mg PO DAILY . 07/14/22 [History Last Taken Unknown] hydroxyzine HCl 50 mg tablet 50 mg PO TID ANXIETY 07/14/22 [History Last Taken Unknown] trazodone 50 mg tablet 50 mg PO DAILY ANXIETY 07/14/22 [History Last Taken Unknown] Allergy/AdvReac Type Severity Reaction Status Date / Time meperidine [From Demerol] Allergy Anaphylaxis Verified 07/14/22 12:18 Family History Grandfather Alcoholism Surgical History H/O cleft lip repair Social History household members: spouse and children Smoking Status: Current every day smoker tobacco type: cigarettes alcohol intake: current alcohol intake frequency: 3 or more drinks per day substance use type: marijuana ROS Constitutional Constitutional: Denies chills, fatigue, fever(s) or malaise Eyes Eyes: Denies blurry vision ENT HEENT: Denies headache(s) or nasal discharge Cardiovascular Cardiovascular: Reports palpitations; Denies chest pain, dyspnea on exertion or syncope Respiratory/Chest Respiratory/Chest: Denies cough, shortness of breath at rest or shortness of breath with exertion Gastrointestinal Gastrointestinal: Denies constipation, diarrhea, nausea or vomiting Genitourinary Genitourinary: Denies dysuria Neurologic Neurologic: Denies focal weakness, numbness or tremor(s) Psychiatric Psychiatric: Reports anxiety; Denies depression Vital Signs Vital Signs Vital Signs: 07/14/22 12:16 Temperature 97 F L Temperature Source Temporal Pulse Rate 116 H Respiratory Rate 18 Blood Pressure 152/107 H Blood Pressure Mean 122 Pulse Ox 97 Oxygen Delivery Method Room Air Physical Exam Narrative General: Alert, Oriented x3, Cooperative, restless HEENT: Atraumatic, PERRLA, EOMI, Normocephalic Oral: Moist Mucosa Neck: Supple, No JVD Lungs: Clear to auscultation, Normal air movement, No rhonchi, No wheeze, No rales Cardiovascular: Tachycardic, Regular Rhythm, Normal S1, Normal S2, No murmurs Abdomen: Soft, Non Tender, Non-Distended, No Hepato-splenomegaly Extremities: No edema, Capillary Refill Less than 3 Seconds Skin: No rashes, No breakdown Musculoskeletal: No Tenderness to Palpation of Joints or Extremities Neurological: Motor Exam 5/5 strength throughout, Sensory exam intact to light touch and pain Psych/Mental Status: Flat affect, anxious Results Lab / Micro Data Result Diagrams: 07/14/22 13:15 07/14/22 13:15 Assessment & Plan Assessment/Plan (1) Alcoholism with alcohol dependence: PLAN: Plan 1. Alcohol abuse requesting detox/polysubstance abuse/bipolar disorder ? We will start him on the alcohol withdrawal protocol ? He does admit to using benzos periodically though not consistently ? We will have him follow-up with [facility], he states he is from [place] so hopefully they will be able to help him set up either inpatient or outpatient rehab ? he does state that he has been sober at times for up to 5 years ? We will continue with his Depakote ? Discussed tobacco cessation DVT: Ambulation Charges/Coding Visit Charges Inpatient E&M: 36562 Init Hosp L2
[2022-07-14 13:28] LABS: Differential Indicated SCAN CRITERIA MET
[2022-07-14 13:29] LABS: Hemoglobin 18.1 g/dL (13.0-16.5)
[2022-07-14 13:35] LABS: AST(SGOT) 39 U/L (15-37); Alanine Aminotransfer ALT/SGPT 53 U/L (16-61); Albumin, Serum 3.9 g/dL (3.2-5.0); Alkaline Phosphatase 126 U/L (45-117); Anion Gap 5 (5-15); BUN 6 mg/dL (7-18); BUN/Creat Ratio 5.3 RATIO (10-20); Chloride 106 mmol/L (98-107); Creatinine, Serum 1.14 mg/dL (0.70-1.30); EST Glomerular Filtration Rate 80 mL/min (>60); Est Glom Filt Rate - Afr Amer 97 mL/min (>60); Globulin 3.9 g/dL (2.2-4.2); Glucose 115 mg/dL (74-106); Lipase 28 U/L (13-75); Potassium 3.8 mmol/L (3.5-5.1); Protein, Total 7.8 g/dL (6.4-8.2); Sodium Level 138 mmol/L (136-145)
[2022-07-14 14:01] VITALS: BP 145/97; PULSE 105; RESP 16; TEMP 36.1; O2SAT 99; BMI 28.1
[2022-07-14 14:58] VITALS: BP 119/78; PULSE 105; RESP 18; TEMP 36.5; O2SAT 94; BMI 27.8
--- NOTE | 2022-07-14 15:07 | NURSING ---
pt states that he injects steriods for body building and gets it off the street last use was last weekend, states last snorted and OD on fentanyl 9 days ago and snorted meth 2 weeks ago, smokes marijuana 1 oz lasts me about 1 week. smokes 1PPD cigarettes, vapes off and on, i chew tobacco as well, a can lasts me about 3 days.
--- NOTE | 2022-07-14 15:10 | NURSING ---
Addendum entered by Saniya Alvarado 07/14/22 15:12: I try not to take them very often, i get into too much trouble when i take them. Original Note: pt states take benzos at home too. 3 days ago, take orally in pill form. i try not to use much, couple mg at a time.
[2022-07-14] MEDS: Gabapentin 300 MG Capsule PO (15:30)
[2022-07-14] MEDS: Divalproex Sodium 250 MG Tablet PO ×2 (15:30→22:40)
[2022-07-14] MEDS: Dicyclomine 10 MG Capsule 20 MG PO (15:31)
[2022-07-14] MEDS: Phenobarbital 32.4 MG Tablet 97.2 MG PO ×2 (15:31→20:20)
[2022-07-14] MEDS: Ondansetron 8 MG Tablet PO (15:31)
--- NOTE | 2022-07-14 15:43 | NURSING ---
staff noticied pt with something in his mouth. nurse to room, originally pt denies/lies to said nurse that he was using/had anything near his mouth. staff who witnessed into room- mattress lifted and VAPE pen found. pen locked up in med drawer and in bio bag. reinforced voluntary program and rules that pt aware of/agreed to. pt apologizes and denies that he has any other personal effects with/on/in him. Text to Md as pt states he is having 'nicotine craving'. oral snacks also given as pt is requesting something to eat
[2022-07-14 16:11] LABS: Amphetamine Urine VISTA NEGATIVE (<1000 ng/mL); Barbiturate Urine VISTA NEGATIVE (< 200 ng/mL); Benzodiazepine Urine VISTA NEGATIVE (< 200 ng/mL); Cocaine Urine VISTA NEGATIVE (< 300 ng/mL); Ecstacy Urine VISTA NEGATIVE (< 500 ng/mL); Methadone Urine VISTA NEGATIVE (< 300 ng/mL); PCP Urine VISTA NEGATIVE (< 25 ng/mL); THC Urine VISTA POSITIVE (< 50 ng/mL); Vista UDS pH Range 7
[2022-07-14] MEDS: hydrOXYzine PAM 25 MG Capsule 50 MG PO (17:52)
[2022-07-14] MEDS: Nicotine Polacrilex 2 MG GUM PO (17:52)
[2022-07-14 20:16] VITALS: BP 110/64; PULSE 98; RESP 18; TEMP 37.1; O2SAT 96
[2022-07-14] MEDS: traZODone 100 MG Tablet PO (22:40)
[2022-07-15 00:10] VITALS: BP 108/51; PULSE 93; RESP 18; TEMP 36.4; O2SAT 97
[2022-07-15] MEDS: Phenobarbital 32.4 MG Tablet 97.2 MG PO ×3 (00:18→08:08)
[2022-07-15 04:52] VITALS: BP 122/61; PULSE 103; RESP 16; TEMP 36.3; O2SAT 100
[2022-07-15] MEDS: Gabapentin 300 MG Capsule PO (04:57)
[2022-07-15] MEDS: Divalproex Sodium 250 MG Tablet PO (06:29)
--- NOTE | 2022-07-15 07:57 | PN.HOSP_ITS ---
Reason for Visit Reason for Visit: Diagnoses Alcohol dependence, uncomplicated (07/14/22) Objective Data Objective Data Vital Signs: Vital Signs Temp Pulse Resp BP Pulse Ox O2 Del Method 36.3 C L 103 H 16 122/61 H 100 Room Air 07/15/22 04:52 07/15/22 04:52 07/15/22 04:52 07/15/22 04:52 07/15/22 04:52 07/15/22 04:52 Oxygen Delivery Method Room Air Weight: 80.603 kg Body Mass Index (BMI) 27.8 Intake & Output: Intake and Output for Last 24 Hours 07/13/22 07/14/22 07/15/22 23:59 23:59 23:59 Intake Total 600 / 600 800 / 800 Balance 600 / 600 800 / 800 Lab / Micro Data Result Diagrams: 07/14/22 13:15 07/14/22 13:15 Labs: Laboratory Results - last 24 hr 07/14/22 13:15: WBC 6.8, RBC 6.01, Hgb 18.1 H*, Hct 53.4, MCV 88.9, MCH 30.1, MCHC 33.9, RDW Std Deviation 40.4, RDW Coeff of Jennifer 12.4, Plt Count 299, MPV 8.9, Immature Gran % (Auto) 0.900, Neut % (Auto) 56.7, Lymph % (Auto) 28.9, Starr % (Auto) 12.4 H, Eos % (Auto) 0.4, Baso % (Auto) 0.7, Absolute Neuts (auto) 3.8, Absolute Lymphs (auto) 1.95, Nucleated RBC % 0, Diff Path Review July07/14/22 13:15: Sodium 138, Potassium 3.8, Chloride 106, Carbon Dioxide 27.0, Anion Gap 5, BUN 6 L, Creatinine 1.14, Est GFR (MDRD) Af Amer 97, Est GFR (MDRD) Non-Af 80, BUN/Creatinine Ratio 5.3 L, Glucose 115 H, Calcium 9.0, Total Bilir ubin 0.40, AST 39 H, ALT 53, Alkaline Phosphatase 126 H, Total Protein 7.8, Albumin 3.9, Globulin 3.9, Albumin/Globulin Ratio 1.0, Lipase 28 07/14/22 13:15: Ethyl Alcohol 182.0 07/14/22 15:30: Urine Opiates Screen NEGATIVE, Urine Methadone Screen NEGATIVE, Ur Barbiturates Screen NEGATIVE, Ur Phencyclidine Scrn NEGATIVE, Ur Amphetamines Screen NEGATIVE, MDMA (Ecstasy) Screen NEGATIVE, U Benzodiazepines Scrn NEGATIVE, Urine Cocaine Screen NEGATIVE, U Cannabinoids Screen POSITIVE H, Ur Drug Screen Comment Assessment & Plan Assessment/Plan (1) Alcoholism with alcohol dependence: PLAN: We will start him on the alcohol withdrawal protocol He does admit to using benzos periodically though not consistently We will have him follow-up with [facility], he states he is from [place] so hopefully they will be able to help him set up either inpatient or outpatient rehab he does state that he has been sober at times for up to 5 years Continue phenobarbital and thiamine and folate PLAN: Plan Chronic conditions: * Bipolar: We will continue with his Depakote * Nicotine abuse: nicotine patch DVT: Ambulation Pt left AMA before I could see him.
[2022-07-15] MEDS: Thiamine Hydrochloride 100 MG Tablet PO (08:10)
[2022-07-15] MEDS: Folic Acid 1 MG Tablet PO (08:10)
[2022-07-15 08:32] VITALS: BP 105/69; PULSE 58; RESP 16; TEMP 36.6; O2SAT 99
--- NOTE | 2022-07-15 10:41 | NURSING ---
pt left ama. papers signed. pt stated he lost his house [place] and needs to move out in 5 days. he is unable to stay. offered him resources, but declined. also told pt that since he is now leaving he has 2 ama's and will next time have to find a program in his county. Initialized on 07/15/22 10:27 - END OF NOTE
[2022-07-16 13:00] LABS: Pathologist Review Reviewed
== END 2022-07-15 10:30 | disposition left against medical advice (07) | DRG 894 ==
LOC: ED 13:39 → MS3 13:49
PROVIDERS: Admitting Provider Family Medicine; Emergency Provider Emergency Medicine
DX: F10.239 Alcohol dependence with withdrawal, unspecified (principal); F12.10 Cannabis abuse, uncomplicated; F31.9 Bipolar disorder, unspecified; F17.210 Nicotine dependence, cigarettes, uncomplicated
CPT/HCPCS: 36415; 80053; 80307; 82077; 83690; 85025; 99283; 99406